=== PATIENT | female | born 1980 | race Caucasian/White ===

== ENCOUNTER 2021-11-21 13:21 | Outpatient (CLI) | payer MEDICAID | END 2021-11-21 13:22 | disposition home or self-care (01) | LOC: BICMAMMO 13:21 | PROVIDERS: ATTEND Family Medicine | DX: Z12.31 Encounter for screening mammogram for malignant neoplasm of breast (principal) | CPT/HCPCS: 77067 ==

== ENCOUNTER 2022-01-03 23:32 | Inpatient (IN) | payer MEDICAID, SELFPAY ==
[2022-01-03] MEDS ORDERED: NOREPINEPHRINE 8 MG/250 ML-D5W 250 ML ONE (23:38)
[2022-01-04 00:04] LABS: Actual Bicarbonate (HCO3a) 16.1 mEq/L (22-28); Analyzer IN Cardio ER; Base Excess (BEa) -8.3 mEq/L (-2.0 to +3.0); CO2 Tension 29.7 mmHg (35.0-45.0); Calcium, Ionized (arterial) 1.02 mmol/L (1.12-1.30); Carboxyhemoglobin (COHb) 6.1 gm% (0.0-3.0); Hemoglobin (Hb) 11.5 g/dL (12.0-16.0); O2 Tension (PaO2), arterial 416.8 mmHg (80.0-100.0); Potassium - ABG Lab 3.36 mmol/L (3.70-5.30); pH, Arterial 7.35 (7.35-7.45)
[2022-01-04] MEDS ORDERED: Fentanyl CADD 100 ML IV SCH (00:15)
[2022-01-04 00:44] LABS: #Eosinphils 0.1 thou/uL (0.0-0.7); #Lymphocytes 2.5 thou/uL (1.20-3.40); #Monocytes 0.4 thou/uL (0.11-0.59); %Basophils 0.6 % (0.0-1.0); %Eosinophils 0.9 % (0.0-10.0); %Lymphocytes 42.1 % (21.0-51.0); %Monocytes 7.3 % (0.0-10.0); %Neutrophils 49.1 % (42.0-75.0); Hemoglobin 10.5 g/dL (12.0-16.0); Mean Corpuscular HGB CONC 33.6 g/dL (32.0-36.0); Mean Corpuscular Hemoglobin 32.5 pg (27.0-31.0); Mean Corpuscular Volume 96.6 fL (78.0-98.0); Mean Platelet Volume 7.7 fL (7.4-10.4); Platelet Count 191 thou/uL (130-400); RBC Distribution Width 13.2 % (11.5-14.5); Red Blood Cell (RBC) Count 3.25 mill/uL (4.20-5.40)
[2022-01-04 01:01] LABS: BHCG - Serum Negative (NEGATIVE); Pregs Control Background? CLEAR/WHITE (CLR/WHITE); Pregs Control Bar Appear? YES (CONTROL BAR)
[2022-01-04 01:03] LABS: Bilirubin Negative (Negative); Blood, Urine Negative (Negative); Clarity Clear (Clear); Glucose, Urine (Dipstick) Normal (Negative); Ketone, Urine Negative (Negative); Leukocyte Negative Leu/uL (Negative); Nitrite Negative (Negative); Protein, Urine (Dipstick) Negative (Neg-Trace); Specific Gravity, Urine 1.002 (1.002-1.036); Urobilinogen Normal mg/dL (Less than 2); pH, Urine 5.5 (5.0-9.0)
[2022-01-04 01:10] LABS: Amphetamine Not Detected (NotDetected); Barbiturates Screen Not Detected (NotDetected); Benzodiazepine Screen Detected (NotDetected); Cocaine Metabolite Screen Not Detected (NotDetected); Methadone Not Detected (NotDetected); Methamphetamine Not Detected (NotDetected); Opiate Screen Not Detected (NotDetected); Oxycodone Screen Not Detected (NotDetected); Phencyclidine (PCP) Not Detected (NotDetected); THC/Cannabinoid Screen Not Detected (NotDetected); Tricyclic Screen Detected (NotDetected)
[2022-01-04 01:22] LABS: SARS-CoV-2 NAA Rapid Test Not Detected (NotDetected)
[2022-01-04 01:23] LABS: Albumin 3.5 g/dL (3.5-5.0)
[2022-01-04 01:24] LABS: Chloride 109 mmol/L (98-107)
[2022-01-04 01:25] LABS: Calcium 7.5 mg/dL (7.8-10.44); Potassium 3.4 mmol/L (3.5-5.1); Sodium 136 mmol/L (136-145)
[2022-01-04 01:26] LABS: Globulin 2.2 g/dL (2.4-3.5); Glucose 86 mg/dL (70-105); Protein, Total 5.7 g/dL (6.0-8.3)
[2022-01-04 01:27] LABS: Carbon Dioxide 15 mmol/L (22-29)
[2022-01-04 01:28] LABS: Bilirubin, Total 0.3 mg/dL (0.2-1.2)
[2022-01-04 01:29] LABS: Alcohol 173 mg/dL (Less than 10); Alkaline Phosphatase 55 U/L (40-110); Calc. Creatinine Clearance 0 mL/min (70-130); Estimated GFR 114
[2022-01-04 01:30] LABS: BUN (Urea Nitrogen) Less than 4 mg/dL (7.0-18.7)
[2022-01-04 01:31] LABS: AST (SGOT) 20 U/L (5-34)
[2022-01-04 01:32] LABS: ALT (SGPT) 13 U/L (8-55); Acetaminophen Less than 10.0 mcg/mL (10.0-30.0); CK (CPK) 103 U/L (29-168); Salicylate Less than 8.0 mg/dL (15.0-30.0)
[2022-01-04 01:46] LABS: Anion Gap 15 mmol/L (10-20)
[2022-01-04] MEDS ORDERED: Ondansetron PF 4 MG/2 ML Vial IVP PRN (02:26)
[2022-01-04] MEDS ORDERED: NOREPINEPHRINE 8 MG/250 ML-D5W 250 ML IVPB PRN (02:28)
[2022-01-04] MEDS ORDERED: Electrolyte Replacement Protocol 1 EACH IVPB SCH (02:28)
[2022-01-04] MEDS ORDERED: Ventilator Sedation Protocol 1 EACH FS SCH (02:30)
[2022-01-04] MEDS ORDERED: Midazolam HCl 2 mg/2 ml Vial SLOW IVP PRN (02:40)
[2022-01-04] MEDS ORDERED: Fentanyl BOLUS 250 ML IVPB PRN (02:45)
[2022-01-04] MEDS ORDERED: Potassium Chloride 20 MEQ TAB PER TUBE SCH (02:45)
[2022-01-04] MEDS ORDERED: Morphine 2 MG/ML VIAL SLOW IVP PRN (02:45)
[2022-01-04] MEDS ORDERED: Propofol 1,000 MG/100 ML VIAL IV PRN (02:45)
[2022-01-04] MEDS ORDERED: Electrolyte Replacement Protocol FS PRN (02:45)
[2022-01-04] MEDS ORDERED: DISCONTINUE PREVIOUS NARCOTIC PAIN MEDICATIONS AND BENZODIAZEPINES FS SCH (02:45)
[2022-01-04] MEDS ORDERED: Propofol BOLUS 1,000 MG/100 ML VIAL IV PRN (02:45)
[2022-01-04] MEDS ORDERED: Sodium Bicarb 50 MEQ/50 ML VIAL IVP SCH (02:45)
[2022-01-04 03:15] LABS: #Basophils 0.1 thou/uL (0.0-0.2); #Eosinphils 0.1 thou/uL (0.0-0.7); #Monocytes 0.4 thou/uL (0.11-0.59); %Basophils 0.9 % (0.0-1.0); %Eosinophils 1.2 % (0.0-10.0); %Lymphocytes 45.7 % (21.0-51.0); %Monocytes 6.2 % (0.0-10.0); Hemoglobin 11.8 g/dL (12.0-16.0); Mean Corpuscular HGB CONC 33.6 g/dL (32.0-36.0); Mean Corpuscular Hemoglobin 32.2 pg (27.0-31.0); Mean Platelet Volume 7.6 fL (7.4-10.4); Platelet Count 214 thou/uL (130-400); RBC Distribution Width 13.2 % (11.5-14.5); Red Blood Cell (RBC) Count 3.66 mill/uL (4.20-5.40); White Blood Cell (WBC) Count 6.5 thou/uL (4.8-10.8)
[2022-01-04 03:39] LABS: Lactic Acid 2.7 mmol/L (0.5-2.2)
[2022-01-04 03:47] LABS: ALT (SGPT) 13 U/L (8-55); AST (SGOT) 21 U/L (5-34); Albumin 3.5 g/dL (3.5-5.0); Alkaline Phosphatase 54 U/L (40-110); Anion Gap 15 mmol/L (10-20); BUN (Urea Nitrogen) Less than 4 mg/dL (7.0-18.7); Bilirubin, Total 0.3 mg/dL (0.2-1.2); Calc. Creatinine Clearance 0 mL/min (70-130); Calcium 7.6 mg/dL (7.8-10.44); Carbon Dioxide 16 mmol/L (22-29); Chloride 110 mmol/L (98-107); Estimated GFR 114; Globulin 2.5 g/dL (2.4-3.5); Glucose 74 mg/dL (70-105); Magnesium 1.6 mg/dL (1.6-2.6); Potassium 3.3 mmol/L (3.5-5.1); Sodium 138 mmol/L (136-145)
[2022-01-04] MEDS ORDERED: Sodium Chloride 0.9% 1,000 ML IV SCH ×3 (04:45→06:30)
[2022-01-04 07:09] LABS: Actual Bicarbonate (HCO3a) 17.5 mEq/L (22-28); Base Excess (BEa) -4.9 mEq/L (-2.0 to +3.0); Calcium, Ionized (arterial) 1.01 mmol/L (1.12-1.30); Carboxyhemoglobin (COHb) 0.1 gm% (0.0-3.0); Hemoglobin (Hb) 11.1 g/dL (12.0-16.0); O2 Tension (PaO2), arterial 139.2 mmHg (80.0-100.0); Potassium - ABG Lab 3.12 mmol/L (3.70-5.30); pH, Arterial 7.46 (7.35-7.45)
[2022-01-04 07:15] LABS: ALV-art Gradient 43.325 mmHg (0-20); CO2 Tension 25.1 mmHg (35.0-45.0); Puncture Site RBA
[2022-01-04] MEDS ORDERED: Magnesium Sulfate 1 GM/2 ML VIAL IM SCH (07:30)
[2022-01-04] MEDS ORDERED: Magnesium 2 GM/50 ML(in water) 2 GM in Premix Bag 1 BAG IVPB SCH (08:00)
[2022-01-04] MEDS: Famotidine/PF 20 mg/2ml Vial SLOW IVP SCH ×2 (08:08→20:58)
[2022-01-04] MEDS: Enoxaparin Sodium 40 MG/0.4 ML SYRINGE SC SCH (08:08)
[2022-01-04] MEDS: Sodium Chloride 0.9% 1,000 ML IV SCH ×2 (09:31→22:00)
[2022-01-04 12:05] LABS: Actual Bicarbonate (HCO3v) 21 mEq/L (22-28); Analyzer IN Cardio ER; Base Excess -4.1 mEq/L (-2.0 to +3.0); Calcium, Ionized (venous) 1.04 mmol/L (1.16-1.32); Chloride (VBG) 114 mmol/L (98-106); Hemoglobin (Hb) 11.9 g/dL (11.7-15.5); Potassium (VBG) 3.69 mmol/L (3.70-5.30); Sodium 137.1 mmol/L (133-146); pH (venous) 7.37 (7.32-7.43)
[2022-01-04 12:27] LABS: Potassium 3.7 mmol/L (3.5-5.1)
[2022-01-04] MEDS ORDERED: Lactated Ringer's 1,000 ML IV SCH (16:15)
[2022-01-04] MEDS: Acetaminophen 325 MG TAB PO PRN (20:55)
[2022-01-05 03:54] LABS: #Basophils 0.1 thou/uL (0.0-0.2); #Eosinphils 0.1 thou/uL (0.0-0.7); #Lymphocytes 2.2 thou/uL (1.20-3.40); #Monocytes 0.9 thou/uL (0.11-0.59); #Neutrophils 5.9 thou/uL (1.40-6.50); %Basophils 0.6 % (0.0-1.0); %Eosinophils 0.6 % (0.0-10.0); %Lymphocytes 24.1 % (21.0-51.0); %Monocytes 9.8 % (0.0-10.0); %Neutrophils 64.9 % (42.0-75.0); Hemoglobin 11.2 g/dL (12.0-16.0); Mean Corpuscular HGB CONC 32.7 g/dL (32.0-36.0); Mean Corpuscular Hemoglobin 32.4 pg (27.0-31.0); Mean Corpuscular Volume 99.1 fL (78.0-98.0); Mean Platelet Volume 8.5 fL (7.4-10.4); Platelet Count 197 thou/uL (130-400); RBC Distribution Width 13.3 % (11.5-14.5); Red Blood Cell (RBC) Count 3.45 mill/uL (4.20-5.40); White Blood Cell (WBC) Count 9.1 thou/uL (4.8-10.8)
[2022-01-05 04:03] LABS: ALT (SGPT) 13 U/L (8-55); AST (SGOT) 27 U/L (5-34); Albumin 3.1 g/dL (3.5-5.0); Alkaline Phosphatase 61 U/L (40-110); Anion Gap 12 mmol/L (10-20); BUN (Urea Nitrogen) 4 mg/dL (7.0-18.7); Bilirubin, Total 0.4 mg/dL (0.2-1.2); Calc. Creatinine Clearance 119 mL/min (70-130); Calcium 7.8 mg/dL (7.8-10.44); Carbon Dioxide 22 mmol/L (22-29); Chloride 107 mmol/L (98-107); Estimated GFR 114; Globulin 2.4 g/dL (2.4-3.5); Glucose 82 mg/dL (70-105); Magnesium 1.8 mg/dL (1.6-2.6); Potassium 3.6 mmol/L (3.5-5.1); Protein, Total 5.5 g/dL (6.0-8.3); Sodium 137 mmol/L (136-145)
[2022-01-05] MEDS ORDERED: Magnesium 2 GM/50 ML(in water) 2 GM in Premix Bag 1 BAG IVPB SCH (06:15)
[2022-01-05] MEDS: Famotidine/PF 20 mg/2ml Vial SLOW IVP SCH ×2 (08:47→20:15)
[2022-01-05] MEDS: Enoxaparin Sodium 40 MG/0.4 ML SYRINGE SC SCH (08:47)
[2022-01-05] MEDS: Acetaminophen 325 MG TAB PO PRN ×2 (10:49→20:17)
[2022-01-05] MEDS ORDERED: hydrOXYzine 25 MG TAB PO SCH (23:15)
[2022-01-06 06:16] LABS: #Eosinphils 0.1 thou/uL (0.0-0.7); #Lymphocytes 2.1 thou/uL (1.20-3.40); #Monocytes 0.5 thou/uL (0.11-0.59); #Neutrophils 6.8 thou/uL (1.40-6.50); %Basophils 0.5 % (0.0-1.0); %Eosinophils 0.8 % (0.0-10.0); %Lymphocytes 22.3 % (21.0-51.0); %Monocytes 5.6 % (0.0-10.0); %Neutrophils 70.7 % (42.0-75.0); Hemoglobin 10.7 g/dL (12.0-16.0); Mean Corpuscular HGB CONC 33.2 g/dL (32.0-36.0); Mean Corpuscular Hemoglobin 32.5 pg (27.0-31.0); Mean Corpuscular Volume 97.9 fL (78.0-98.0); Mean Platelet Volume 8.6 fL (7.4-10.4); Platelet Count 189 thou/uL (130-400); RBC Distribution Width 13.2 % (11.5-14.5); White Blood Cell (WBC) Count 9.6 thou/uL (4.8-10.8)
[2022-01-06 06:42] LABS: ALT (SGPT) 20 U/L (8-55); AST (SGOT) 32 U/L (5-34); Albumin 3.1 g/dL (3.5-5.0); Alkaline Phosphatase 64 U/L (40-110); Anion Gap 10 mmol/L (10-20); BUN (Urea Nitrogen) 8 mg/dL (7.0-18.7); Bilirubin, Total 0.3 mg/dL (0.2-1.2); Calc. Creatinine Clearance 118 mL/min (70-130); Calcium 8.2 mg/dL (7.8-10.44); Carbon Dioxide 25 mmol/L (22-29); Chloride 108 mmol/L (98-107); Estimated GFR 113; Globulin 2.5 g/dL (2.4-3.5); Glucose 92 mg/dL (70-105); Magnesium 1.8 mg/dL (1.6-2.6); Potassium 3.3 mmol/L (3.5-5.1); Protein, Total 5.6 g/dL (6.0-8.3); Sodium 140 mmol/L (136-145)
[2022-01-06] MEDS: Enoxaparin Sodium 40 MG/0.4 ML SYRINGE SC SCH (07:52)
[2022-01-06] MEDS ORDERED: Potassium Chloride 20 MEQ TAB PO SCH (08:00)
[2022-01-06] MEDS ORDERED: Magnesium 2 GM/50 ML(in water) 2 GM in Premix Bag 1 BAG IVPB SCH (08:00)
[2022-01-06 08:35] VITALS: TEMP 97.9
[2022-01-06] MEDS: Acetaminophen 325 MG TAB PO PRN (10:35)
[2022-01-06 10:39] VITALS: BP 116/78
[2022-01-06 14:39] VITALS: BMI 24.2
== END 2022-01-06 16:00 | disposition home or self-care (01) | DRG 917 ==
LOC: ERS 23:32 → CCU 01-04 00:58 → T4-A 01-05 09:55
PROVIDERS: ADMIT Internal Medicine; ATTEND Internal Medicine
PROC: 0BH17EZ Insertion of Endotracheal Airway into Trachea, Via Natural or Artificial Opening (ICD-10-PCS; principal; 2022-01-04)
PROC: 5A1935Z Respiratory Ventilation, Less than 24 Consecutive Hours (ICD-10-PCS; 2022-01-04)
PROC: 0D9670Z Drainage of Stomach with Drainage Device, Via Natural or Artificial Opening (ICD-10-PCS; 2022-01-04)
PROC: 3E033XZ Introduction of Vasopressor into Peripheral Vein, Percutaneous Approach (ICD-10-PCS; 2022-01-04)
DX: T42.4X4A Poisoning by benzodiazepines, undetermined, initial encounter (principal); G92.8 Other toxic encephalopathy; J96.01 Acute respiratory failure with hypoxia; E87.2 Acidosis; T78.2XXA Anaphylactic shock, unspecified, initial encounter; Z23 Encounter for immunization; Z20.822 Contact with and (suspected) exposure to COVID-19; F10.920 Alcohol use, unspecified with intoxication, uncomplicated; F32.A Depression, unspecified; F17.210 Nicotine dependence, cigarettes, uncomplicated; D64.9 Anemia, unspecified; F39 Unspecified mood [affective] disorder; Z79.899 Other long term (current) drug therapy; Z78.1 Physical restraint status
CPT/HCPCS: 36415; 36600; 71045; 80053; 80306; 80307; 81003; 82550; 82805; 83605; 83735; 84439; 84443; 84481; 84703; 85025; 87040; 93005; 94002; J1650; J2704; J3010; J3475; J3490; J7050; J7120; S0028; U0002